=== PATIENT | female | born 1985 | race Caucasian/White ===

== ENCOUNTER 2017-12-24 21:32 | Emergency (ER) | payer OTHER ==
[2017-12-24 21:52] VITALS: BP 115/81; PULSE 82; RESP 18; TEMP 98.5
[2017-12-24] MEDS ORDERED: LIDOCAINE 1% INJ 10MG/ML (20 ML MDV) SQ ONE (22:28)
--- NOTE | 2017-12-24 22:32 | ED ---
Skin/Abscess/FB HPI - General Chief complaint: Skin/Abscess/Foreign Body Stated complaint: Infected finger Time Seen by Provider: 12/24/17 22:25 Source: patient, RN notes reviewed Mode of arrival: ambulatory Limitations: no limitations - History of Present Illness Initial comments: This a 31-year-old female presents emergency Department chief complaint infection to her right hand fifth digit. Patient states has been present for last 6-7 days. Patient states she was seen at urgent care and was given Bactrim. She states that she's been taking about has had no improvement. She states that they did not open her wound. Patient states that it's been throbbing and more painful. - Related Data Allergies Allergy/AdvReac Type Severity Reaction Status Date / Time No Known Allergies Allergy Verified 12/24/17 21:52 Review of Systems ROS Statement: Those systems with pertinent positive or pertinent negative responses have been documented in the HPI. ROS Other: All systems not noted in ROS Statement are negative. Past Medical History Past Medical History: Diabetes Mellitus Additional Past Medical History / Comment(s): Endo History of Any Multi-Drug Resistant Organisms: None Reported Past Surgical History: No Surgical Hx Reported Past Psychological History: No Psychological Hx Reported Smoking Status: Never smoker Past Alcohol Use History: Rare Past Drug Use History: None Reported General Exam Limitations: no limitations General appearance: alert, in no apparent distress Respiratory exam: Present: normal lung sounds bilaterally. Absent: respiratory distress, wheezes, rales, rhonchi, stridor Cardiovascular Exam: Present: regular rate, normal rhythm, normal heart sounds. Absent: systolic murmur, diastolic murmur, rubs, gallop, clicks Extremities exam: Present: other (Right hand fifth digit there is swelling and erythema along the proximal nail fold, tenderness with palpation there is a pocket of pus noted the medial aspect) Course Vital Signs 12/24/17 21:47 Temperature 98.5 F Pulse Rate 82 Respiratory 18 Rate Blood Pressure 115/81 O2 Sat by Pulse 99 Oximetry Procedures - Procedures Initial comment: Procedure: Digital block was performed on the right hand fifth digit proximal finger was cleaned with Betadine, 4 mL of lidocaine 1% without epinephrine were injected on either side of the digit patient had complete relief of the pain of her finger, #10 blade were used to excise around the nail fold, purulent drainage was expressed from the digit. Medical Decision Making - Medical Decision Making 31-year-old female presents from for infection to her right hand fifth digit. Patient has a paronychia. I did perform a digital block in took a #10 blade around the nail fold which alleviated. I drainage. Patient will continue Bactrim, warm soaks 20 minutes at a time. She'll follow-up for recheck and return for any worsening symptoms. Disposition Clinical Impression: Paronychia Disposition: HOME SELF-CARE Condition: Stable Instructions: Paronychia (ED) Additional Instructions: Please return to the Emergency Department if symptoms worsen or any other concerns. Finish antibiotics as directed. Is patient prescribed a controlled substance at d/c from ED?: No Referrals: None,Stated [Primary Care Provider] - 1-2 days
== END 2017-12-24 23:07 | disposition home or self-care (01) ==
LOC: EC 21:32
DX: L03.011 Cellulitis of right finger (principal)
CPT/HCPCS: 99283; 10060; J2001